=== PATIENT | male | born 1990 | race Caucasian/White ===

== ENCOUNTER 2017-06-27 15:32 | Emergency (ER) | payer SELFPAY ==
[~2017-06-27] VITALS: Ht 170.2 cm; Wt 75.7 kg
[2017-06-27 15:41] VITALS: BP 146/94; TEMP 36.7; Ht 170.2 cm; Wt 75.7 kg
[2017-06-27] MEDS ORDERED: OXYC1TAB3 PO (16:58)
[2017-06-27] MEDS ORDERED: PENI500T2 PO (16:58)
--- NOTE | 2017-06-27 16:59 | EMERGENCY ROOM VISIT NOTE ---
ED Visit Note First contact with patient: 16:26 CHIEF COMPLAINT: Right upper dental pain 3 days HISTORY OF PRESENT ILLNESS: Patient is an otherwise healthy 26-year-old white male who presents to emergency department for evaluation of right upper dental pain 3 days. He reports that he lost the filling from the tooth about a year ago, states that it broke and developed a cavity about 6 months ago, but it did not become painful until just this week. He has been taking Tylenol and applying Orajel. He is now allergy to ibuprofen. He reports that he notes a metallic taste in his mouth on occasion. He denies any facial swelling or fever. He has an appointment with a dentist in [place], but not until the . He rates his pain a 6/10. REVIEW OF SYSTEMS: Review of systems as per HPI. All other systems reviewed were negative. At least 6 systems reviewed. PMH: Electronic medical records are reviewed and summarized as above/below. See Problem List. SOCIAL HISTORY: Patient lives at home with his and daughter. Nonsmoker. PHYSICAL EXAM: Vital Signs: Reviewed Nurse's notes. CONSTITUTIONAL: Patient is an uncomfortable appearing 26-year-old white male who is awake and alert and in no acute distress. Vital signs are stable. He is holding the right side of his face with his hand. EARS: Tympanic membranes intact, not inflamed, have normal contour. External canals clear. MOUTH: Overall the patient has fair dentition. He is status post several extractions and has multiple fillings. The right upper first molar in question has an obvious cavity, and is tender to percussion. There is slight swelling along the gumline although no focal abscess. Mucous membranes moist, no lesions , tongue and gums appear normal. THROAT: No pharyngeal injection, exudates, or tonsillar hypertrophy. Airway is patent. No trismus noted. FACE: No facial swelling is appreciated. No cellulitic changes. NECK: No lymphadenopathy. . ED course: The patient was seen and evaluated as above. He does not have any old records at this facility for review. The patient does not have any evidence for drainable abscess, facial cellulitis or Israel's angina. He will be placed on Pen-Vee K and was given a prescription for oxycodone to use for pain. He was advised to follow-up with dentist as soon as possible for definitive care and management. Medication reconciliation: I attest that I have personally reviewed the patient' s current medication list. Blood pressure screening: Patient was found to have a slightly elevated blood pressure due to circumstances. I do not believe that the patient requires hypertension monitoring. Patient was reviewed in the [facility] Prescription Drug Monitoring Program, and there were no red flags noted. Current/Historical Medications Scheduled Penicillin V Potassium (Veetids), 500 MG PO QID Scheduled PRN Oxycodone Immediate Rel Tab (Roxicodone Ir), 1-2 TAB PO Q4H PRN for Severe Pain Allergies Coded Allergies: Ibuprofen (Verified Allergy, Mild, HIVES, 06/27/17) Vital Signs Date Time Temp Pulse Resp B/P (MAP) Pulse Ox O2 Delivery O2 Flow Rate FiO2 06/27/17 17:37 80 18 98 Room Air 06/27/17 15:41 36.7 74 18 146/94 98 Room Air Departure Information Impression Primary Impression: Pain, dental Prescriptions Oxycodone Immediate Rel Tab (ROXICODONE IR) 5 Mg Tab 1-2 TAB PO Q4H Y for Severe Pain, #25 TAB For Initial Treatment Prov: Jossie Ortega PA 06/27/17 Penicillin V Potassium (VEETIDS) 500 Mg Tab 500 MG PO QID, #40 TAB Prov: Jossie Ortega PA 06/27/17 Referrals No Doctor, Assigned (PCP) Patient Instructions My [facility] Additional Instructions Penicillin 500mg: Take one pill four times daily for 10 days for your dental infection. All antibiotics can cause diarrhea. If this occurs and you feel worse or it does not resolve in 1-2 days follow up with your doctor or return to the Emergency Department as this could be signs of serious underlying problems. Any medication can cause an allergic reaction, stop the pills immediately and return to the ER for rash, hives, breathing difficulties, or swelling. Acetaminophen(Tylenol) may be used for fever or pain. Use 1000mg every six hours as needed. Avoid using more than 4000mg in a 24 hour period. Oxycodone (OxyIR) 5mg: Take 1-2 pills every four hours for breakthrough pain. Avoid alcohol, operating machinery or dangerous equipment, working on ladders or roofs, DRIVING, or situations where being under the influence may be dangerous. It is recommended to use an [id number] stool softener such as Colace, 100mg twice daily while taking this medication to avoid constipation. Saltwater gargles after meals and before bedtime. Soft foods. Followup with your dentist as scheduled for definitive management. You may also follow up with your primary care physician for pain/care management until you can be seen by your dentist.
[2017-06-27 17:37] VITALS: PULSE 80; O2SAT 98
== END 2017-06-27 17:15 | disposition home or self-care (01) ==
LOC: C.EDB 15:36 → C.EDD 17:15
DX: K08.89 Other specified disorders of teeth and supporting structures (principal)